=== PATIENT | female | born 1935 | race Caucasian/White ===

== ENCOUNTER → 2018-02-23 | Outpatient (CLI) | payer OTHER ==
[~2018-02-23] VITALS: Ht 162.6 cm; Wt 59.0 kg
[~2018-02-23] MED LIST: ASPIR-LOW81 MG PO; CLONIDINE0.1 PO; COLACE100 MG PO; DIOVAN320 MG PO; LASIX 20 MG TAB20 MG PO; MIRALAX17 GM PO; NORFLEX100 MG PO; OXYBUTYNIN 5 MG5 M1 PO; OXYCODONE HCL 55 MG PO; PLAVIX 75 MG TA75 M1 PO; PROTONIX40 M1 PO; RESTASIS1 EACH OPHTHALMIC; SALSALATE 750750 MG PO; SIMVASTATIN40 MG PO; TOPROL XL100 MG PO; TYLENOL325 MG PO; ZOCOR 20 MG TAB20 M1 PO
--- NOTE | ~2018-02-23 | HPC ---
[facility] [place] [address] PAIN MANAGEMENT CONSULTATION Name: IVETT MELGOZA MARCH Room #: REG PHILIP Rangel#: [id number] Admission: 02/23/18 Attend Phys: Fitz Dewitt DO Discharge: Date of : 37 Report #: [id number] THIS REPORT FOR: //name// CC: Mel Dewitt HISTORY OF PRESENT ILLNESS: The patient is a pleasant 82-year-old female seen in consultation at the request of Dr. Mel Valentin for symptoms and management of axial back pain. The patient ostensibly had been referred to Dr. Zachariah Dewitt sometime ago, but she never heard back from the calf pain clinic. She ended up being referred to me for ongoing axial back pain. She has had chronic back pain status post multiple compression fractures, had a T8 kyphoplasty in 2007, had another fracture (T12) initially 2009 and was treated conservatively. She developed acute onset of pain about a week and a half ago with pain from the mid waist up to the mid back, exacerbated with any movement including deep breathing. She notes continuous cramping pain, she rates "15" on a 0-10 visual analog scale. The patient had a left total knee arthroplasty on 02/01/2018. She has actually done well with this and pain is fairly nominal. She is unable to rehab due to ongoing axial back pain. She has been prescribed oxycodone 5 mg b.i.d. for the knee, she is taking it for her back and it seems to help some. 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 She wears an AFO on this side. She does have some chronic inversion of the left foot. REVIEW OF SYSTEMS: Complete review of systems was attached to the chart, was gone over with the visit. She is , she is accompanied by her who is supportive. Does not smoke or drink alcohol to excess. History of coronary artery disease status post myocardial infarction in 2010. She has been on Plavix since that time. She does not have any endovascular stents. Hypertension, treated with clonidine, Lasix, metoprolol and valsartan. Gastroesophageal reflux for which she takes pantoprazole. Dyslipidemia for which she takes simvastatin. Had a stroke in 2010. No sequelae is noted. Has had the aforementioned total knee arthroplasty on 02/01/2018, the aforementioned left total hip arthroplasty with subsequent left leg neuropraxia from 2007. Aforementioned 2008 T8 vertebroplasty. Otherwise, 12-point review of systems was noncontributory. (All other systems are negative). OCCUPATIONAL HISTORY: The patient is retired, she has been retired for 21 years. Pain impact score is quite high at 56/70. PHYSICAL EXAMINATION: [facility] [address] [place] [address] PAIN MANAGEMENT CONSULTATION Name: IVETT MELGOZA MARCH Room #: REG PHILIP Rangel#: [id number] Admission: 02/23/18 Attend Phys: Fitz Dewitt DO Discharge: Date of : 37 Report #: [id number] VITAL SIGNS: Reveals height is 5 feet 4 inches, 130 pounds female, BMI is 22.3 kilograms per meter squared. Blood pressure 136/70, pulse 64, respirations 22. NEUROLOGIC: Cranial nerves 2-12 grossly intact. HEENT: Pupils equal and react to light and accommodation. Extraocular muscles are intact. There is no nystagmus or lateral gaze deviation. NECK: Cervical range of motion is full. MUSCULOSKELETAL: Upper extremity strength is generally symmetric, though resistance testing significantly exacerbates axial back pain. HEART: Regular and rhythmical at this time. LUNGS: Clear. ABDOMEN: Benign. MUSCULOSKELETAL: Has very focal tenderness about the low thoracic upper lumbar midline. Does have some diffuse thoracic paravertebral muscle tenderness. No discrete trigger points are noted. Lower extremity strength generally symmetric with the caveat that left ankle dorsiflexion is absent and status post left total knee arthroplasty. She still has some tenderness with muscle testing. ASSESSMENT: Ryeft-il-[id number] vertebral compression fracture. RECOMMENDATIONS: I did take the opportunity to contact Dr. Zachariah Dewitt who was kind enough to review the patient's MRI at [facility]. We will have the patient refrain from using Plavix for the next 7 days. Follow up with Dr. Zachariah Dewitt on Tuesday for consultation and plan on moving forward with kyphoplasty at T12 a week from today. Thank you for allowing me to participate in the patient's care. I did encourage her to take her oxycodone 5 mg up to t.i.d. We talked about daytime somnolence, mental acuity changes, constipation. Encouraged to use intermittent acetaminophen max of 3000 mg a day for adjuvant pain relief. <ELECTRONICALLY SIGNED> By: Fitz Dewitt DO 02/27/18 0711 [id number] Fitz Dewitt DO /nt
[2018-02-23 14:08] VITALS: BP 136/70
== END ==
LOC: PAIN 05:53
DX: S32.009A Unspecified fracture of unspecified lumbar vertebra, initial encounter for closed fracture (principal); X58.XXXA Exposure to other specified factors, initial encounter; Y93.89 Activity, other specified; Y92.89 Other specified places as the place of occurrence of the external cause; Y99.8 Other external cause status

== ENCOUNTER → 2018-03-29 | Outpatient (CLI) | payer OTHER ==
[~2018-03-29] VITALS: Ht 162.6 cm; Wt 66.0 kg
[~2018-03-29] MED LIST changes: +TRAMADOL 50 MG50 MG PO
--- NOTE | ~2018-03-29 | HPC ---
[facility] [address] [place] [address] PAIN MANAGEMENT CONSULTATION Name: IVETT MELGOZA MARCH Room #: REG PHILIP Ya.#: [id number] Admission: 03/29/18 Attend Phys: Zachariah Dewitt DO Discharge: Date of : 37 Report #: [id number] THIS REPORT FOR: //name// CC: Mel Dewitt DATE OF SERVICE: 03/29/2018 REFERRING PHYSICIAN: Mel Valentin MD CHIEF COMPLAINT: Mid back pain. HISTORY OF PRESENT ILLNESS: As you know, the patient is a very pleasant 83-year-old female who was recently seen in consultation per the request of her primary care physician for a T12 compression fracture. The patient underwent a kyphoplasty procedure of T12 with good efficacy, unfortunately within about a week time, the patient was describing increasing pain. She underwent a new MRI imaging at [facility], which showed a T9 compression fracture that is new. The patient denies specific injury or trauma that may have led to symptom development. She indicates pain level of 8/10, states pain is sharp, aching in sensation, exacerbated with riding in a car, any kind of movement. Medications and bracing tends to help, but is not resolving her symptoms entirely. She returns today in followup visit to review the recent MRI imaging and discuss treatment options for this new compression fracture at T9 not noted in MRI imaging of 01/25/2018. ALLERGIES: IMIPRAMINE and TEQUIN. CURRENT MEDICATIONS: Tramadol 50 mg every 8 hours p.r.n. for pain, MiraLax 17 grams per day, pantoprazole 40 mg per day, clonidine 0.1 mg once a day, acetaminophen 325 mg 6 times a day, aspirin 81 mg per day, furosemide 20 mg per day, simvastatin 40 mg per day, Restasis one drop each eye per day, docusate sodium 100 mg per day, orphenadrine 100 mg twice a day, metoprolol 100 mg once a day, Plavix 75 mg once a day (held since March 15), and valsartan 320 mg per day. SOCIAL HISTORY: The patient denies tobacco, alcohol, IV or illicit drug use. She is retired, retired years ago. She is accompanied by her who is present in room today. IMAGING: MRI thoracic spine obtained 03/17/2018, shows previous vertebroplasties at T8 and T12. There is hyperintense edema along the T12 vertebral body, T1 hypointense changes and T1 hyperintense changes within the T9 vertebral body, compression fracture along the inferior endplate of T9, approximately 80% [place] [address] PAIN MANAGEMENT CONSULTATION Name: IVTET MELGOZA MARCH Room #: REG PHILIP Rangel#: [id number] Admission: 03/29/18 Attend Phys: Zachariah Dewitt DO Discharge: Date of : 37 Report #: [id number] PQRS: The patient has osteoarthritis of the knees and hips, mild arthritic changes in the lumbar spine, no rheumatoid arthritis. Pain intensity is 8/10. She is not a fall risk, has not had a fall in last 3 months. She is on a blood thinner in the form of Plavix, but held since 03/15/2018. She is treated for hypertension. She has not been on opioids for greater than 6 weeks. She is a low risk for opioid addiction. Functional assessment tool pain impact score 56/70, severe. PHYSICAL EXAMINATION: VITAL SIGNS: Blood pressure 130/68, pulse 55, respiratory rate 16 and unlabored, the patient is 97% on room air, height 5 feet 4 inches tall, weight 154.4 pounds, and BMI calculated 24.9. GENERAL: Well-developed, well-nourished, well-hydrated 83-year-old female, she appears stated age, placing current pain score at 8/10. HEENT: Normocephalic, atraumatic. Pupils are equal, round, and reactive to light. Extraocular muscles are intact. Sclerae are nonicteric without injection. NEUROLOGIC: Cranial nerves 2-12 are grossly intact. Speech is fluent. The patient deemed a good historian. LUNGS: Clear, no wheeze, rhonchi or rales. Pain is elicited with deep inhalation and exhalation over the T9 level. CARDIOVASCULAR: Regular. No appreciable gallop, no rub. ABDOMEN: Soft, nontender, nondistended. EXTREMITIES: Show no clubbing, no cyanosis, no edema. MUSCULOSKELETAL: The patient has palpatory tenderness over the T9 level. No spinous process tenderness. No ecchymosis, no changes in skin color or texture overlying the area of discomfort. She is in a LSO brace currently. There is some palpatory tenderness over the paraspinal musculature of thoracic and lumbar area, no radicular component. ASSESSMENT: 1. Acute T9 compression fracture. 2. Osteoporosis. 3. Myofascial pain. PLAN: 1. The patient returns today in followup visit with new MRI obtained 03/17/2018, that shows a new compression fracture at T9, this is new from most recent imaging of 01/25/2018, where there was noted a T12 compression fracture, no changes at the T9 level. The patient states her pain began spontaneously approximately 2 weeks ago and progressively worsened. She has returned with this new MRI imaging to discuss treatment options. Given the findings on the MRI and the history she provides as well as the location of pain, I do believe her symptoms are related to the T9 fracture. We discussed the options as follow. [facility] [address] [place] [address] PAIN MANAGEMENT CONSULTATION Name: IVETT MELGOZA MARCH Room #: REG PHILIP Pandya.#: [id number] Admission: 03/29/18 Attend Phys: Zachariah Dewitt DO Discharge: Date of : 37 Report #: [id number] We discussed treatment options, which would include medication management with change from an LSO brace to a TLSO brace. We discussed vertebral augmentation in the form of a vertebroplasty or kyphoplasty. We also discussed possible surgical options with the patient. After reviewing the risks and benefits of all the proposed treatment options, the patient chose to move forward with kyphoplasty procedure at T9. 2. We have contacted the interventional radiology department here at [facility], they are going to review the patient's MRI by downloading from the cloud the imaging study. Once they have a chance to review the imaging, they will schedule the patient back as quickly as possible. We have requested that we expedite this case as the patient is currently off her Plavix, which places her at high risk for coagulopathy, we wish to have the patient undergo the procedure as quickly as possible, she discontinued her Plavix on March 15, per the request of her PCP to undergo this procedure and we do wish to move her along as quickly as possible to decrease the potential of possible clot formation with her off her Plavix. We have contacted the interventional radiology department, they will review the findings today 03/29/2018, hopefully schedule the patient to undergo kyphoplasty as quickly as possible, so that she can return to her anticoagulation therapy. Orders were faxed and received at the interventional radiology department, we have contacted them by phone to help expedite this process. 3. We made no changes in the patient's medical management at this time, the patient does not wish any changes in medication therapy, she does not wish to "be on pain pills." We will address her symptoms if necessary with medication management as we await the kyphoplasty procedure requested from interventional radiology. 4. We will see the patient back in followup visit on an as needed basis. We are hopeful that she will be able to move forward with this kyphoplasty quickly and pain improvement will be noted. We will be available to talk to the patient at any time. <ELECTRONICALLY SIGNED> By: Zachariah Dewitt DO 04/04/18 1223 [id number] Zachariah Dewitt DO /nt
[2018-03-29 08:04] VITALS: BP 130/68
== END ==
LOC: PAIN 07:00
DX: M48.54XA Collapsed vertebra, not elsewhere classified, thoracic region, initial encounter for fracture (principal); M81.0 Age-related osteoporosis without current pathological fracture; M79.1 Myalgia

== ENCOUNTER → 2018-04-04 | Outpatient (CLI) | payer OTHER ==
[~2018-04-04] VITALS: Ht 162.6 cm; Wt 65.8 kg
[2018-04-04 10:36] VITALS: BP 157/56
[2018-04-04 10:49] LABS: HEMATOCRIT 35.7 % (37.0-47.0); HEMOGLOBIN 11.9 gm/dL (12.0-15.0); MCH 33.4 pg (26.0-34.0); MCHC 33.3 g/dL (28.0-37.0); MCV 100.2 fL (80.0-100.0); RBC 3.56 mil/uL (4.20-5.00); RDW 13.8 % (10.5-14.5); WBC 6.1 thou/uL (4.0-11.0)
[2018-04-04 11:04] LABS: CALCIUM 9.2 mg/dL (8.5-10.1); CREATININE 0.9 mg/dL (0.6-1.0); POTASSIUM 3.9 mmol/L (3.5-5.1)
[2018-04-04 11:05] LABS: PROTIME 10.2 Seconds (9.3-11.4)
== END | disposition home or self-care (01) ==
LOC: SPEC 06:35
PROVIDERS: Radiology Vascular & Interventional Radiology
DX: M80.08XA Age-related osteoporosis with current pathological fracture, vertebra(e), initial encounter for fracture (principal); I10 Essential (primary) hypertension; E78.5 Hyperlipidemia, unspecified; Z96.659 Presence of unspecified artificial knee joint; Z96.642 Presence of left artificial hip joint; Z88.8 Allergy status to other drugs, medicaments and biological substances; Z79.82 Long term (current) use of aspirin; Z79.899 Other long term (current) drug therapy; Z98.890 Other specified postprocedural states

== ENCOUNTER → 2021-01-27 | Outpatient (CLI) | payer OTHER ==
[~2021-01-27] VITALS: Ht 157.5 cm; Wt 70.3 kg
[~2021-01-27] MED LIST changes: +COZAAR 25 MG TA25 M1 PO; +UNICOMPLEX M TA1 TA1 PO; +VITAMIN B-121000 MC2 PO
[2021-01-27 09:30] VITALS: BP 173/69
[2021-01-27 09:52] LABS: HEMATOCRIT 35.2 % (37.0-47.0); HEMOGLOBIN 11.9 gm/dL (12.0-15.0); MCH 34.9 pg (26.0-34.0); MCHC 33.8 g/dL (28.0-37.0); MCV 103.4 fL (80.0-100.0); RBC 3.4 mil/uL (4.20-5.00); RDW 12.9 % (10.5-14.5); WBC 7.3 thou/uL (4.0-11.0)
== END | disposition home or self-care (01) ==
LOC: CATH 08:14
PROVIDERS: ATTEND Nuclear Medicine Nuclear Cardiology
DX: M54.9 Dorsalgia, unspecified (principal); M80.08XA Age-related osteoporosis with current pathological fracture, vertebra(e), initial encounter for fracture; I10 Essential (primary) hypertension; I25.2 Old myocardial infarction; Z98.890 Other specified postprocedural states; Z79.899 Other long term (current) drug therapy; Z96.642 Presence of left artificial hip joint; Z79.82 Long term (current) use of aspirin; Z88.8 Allergy status to other drugs, medicaments and biological substances

== ENCOUNTER → 2021-02-24 | Outpatient (CLI) | payer OTHER | LOC: SJCVC 10:08 | PROVIDERS: ATTEND Nuclear Medicine Nuclear Cardiology | DX: M80.08XA Age-related osteoporosis with current pathological fracture, vertebra(e), initial encounter for fracture (principal); M54.6 Pain in thoracic spine; E78.00 Pure hypercholesterolemia, unspecified; I10 Essential (primary) hypertension; I25.10 Atherosclerotic heart disease of native coronary artery without angina pectoris; E78.5 Hyperlipidemia, unspecified; I25.2 Old myocardial infarction; Z88.1 Allergy status to other antibiotic agents; Z90.49 Acquired absence of other specified parts of digestive tract; Z98.890 Other specified postprocedural states; Z88.8 Allergy status to other drugs, medicaments and biological substances; Z79.82 Long term (current) use of aspirin; Z79.899 Other long term (current) drug therapy; Z86.73 Personal history of transient ischemic attack (TIA), and cerebral infarction without residual deficits; Z82.49 Family history of ischemic heart disease and other diseases of the circulatory system ==